=== PATIENT | female | born 1940 | race Caucasian/White ===

== ENCOUNTER 2023-03-08 13:16 | Outpatient (RCR) | payer OTHER, SELFPAY | END 2023-03-08 23:59 | disposition home or self-care (01) | LOC: RPT 13:16 | PROVIDERS: ATTENDING PHYSICIAN Nurse Practitioner; PRIMARYCARE PHYSICIAN Family Medicine | DX: N39.46 Mixed incontinence (principal); N39.3 Stress incontinence (female) (male); N39.41 Urge incontinence; R27.8 Other lack of coordination; M62.81 Muscle weakness (generalized) | CPT/HCPCS: 97110; 97530 ==

== ENCOUNTER 2023-04-20 11:05 | Outpatient (RCR) | payer OTHER, SELFPAY | END 2023-04-20 23:59 | disposition home or self-care (01) | LOC: RPT 11:05 | PROVIDERS: ATTENDING PHYSICIAN Nurse Practitioner; PRIMARYCARE PHYSICIAN Family Medicine | DX: N39.46 Mixed incontinence (principal); N39.3 Stress incontinence (female) (male); N39.41 Urge incontinence; Z73.6 Limitation of activities due to disability; R27.8 Other lack of coordination; M62.81 Muscle weakness (generalized) | CPT/HCPCS: 97110; 97530 ==

== ENCOUNTER 2023-05-04 13:00 | Outpatient (RCR) | payer OTHER, SELFPAY | END 2023-05-11 14:10 | disposition home or self-care (01) | LOC: RPT 13:00 | PROVIDERS: ATTENDING PHYSICIAN Nurse Practitioner; PRIMARYCARE PHYSICIAN Family Medicine | DX: N39.46 Mixed incontinence (principal); N39.3 Stress incontinence (female) (male); N39.41 Urge incontinence; Z73.6 Limitation of activities due to disability; R27.8 Other lack of coordination; M62.81 Muscle weakness (generalized) | CPT/HCPCS: 97112; 97530 ==

== ENCOUNTER → 2023-08-15 11:24 | Outpatient (REF) | payer OTHER, SELFPAY | LOC: RAD 11:24 | PROVIDERS: ATTENDING PHYSICIAN Family Medicine | DX: Z13.820 Encounter for screening for osteoporosis (principal); Z78.0 Asymptomatic menopausal state; M85.89 Other specified disorders of bone density and structure, multiple sites | CPT/HCPCS: 77080 ==

== ENCOUNTER 2023-09-30 12:05 | Emergency (ER) | payer OTHER, SELFPAY ==
[2023-09-30 12:07] VITALS: BP 156/75
[2023-09-30 12:36] LABS: % Basophils 0.5 % (0-2); % Eosinophils 2.6 % (0-6); % Immature Granulocytes 0.2 % (0-0.5); % Lymphocytes 19.3 % (20.5-51.1); % Monocytes 6.7 % (1.7-9.3); % Neutrophils 70.7 % (42.2-75.2); Absolute Eosinophils 0.2 10^3/uL (0-0.7); Absolute Lymphocytes 1.6 10^3/uL (1.2-3.4); Absolute Monocytes 0.6 10^3/uL (0.1-0.6); Absolute Neutrophils 5.9 10^3/uL (1.4-6.5); Hematocrit 41.2 % (37.0-47.0); Hemoglobin 13.8 g/dL (12.0-16.0); Mean Corp Hgb Conc. 33.5 g/dL (33.0-37.0); Mean Corpuscular Hgb 30.4 pg (27.0-31.0); Mean Corpuscular Volume 90.7 fL (81.0-99.0); Mean Platelet Volume 9.4 fL (7.4-10.4); Nucleated Red Blood Cells % 0 %; Platelet Count 311 10^3/uL (130-400); Red Blood Cell Count 4.54 10^6/uL (4.20-5.40); Red Cell Dist. Width 12.3 % (11.5-14.5); White Blood Cell Count 8.4 10^3/uL (4.8-10.8)
[2023-09-30 12:46] LABS: ALT (SGPT) 21 U/L (0-35); AST (SGOT) 25 U/L (14-36); Albumin 4.6 g/dl (3.5-5.0); Alkaline Phosphatase 98 U/L (38-126); Blood Urea Nitrogen 25 mg/dl (7-17); Calcium 10.7 mg/dl (8.4-10.2); Carbon Dioxide 24 mmol/L (22-30); Chloride 102 mmol/L (98-107); Glucose 145 mg/dl (70-99); Potassium 4.6 mmol/L (3.5-5.1); Sodium 138 mmol/L (135-145); Total Bilirubin 0.9 mg/dl (0.2-1.3); Total Protein 7.2 g/dl (6.3-8.2); eGFR > 60.00
--- NOTE | 2023-09-30 12:48 | ED.GENMED ---
Addendum entered and electronically signed by Vincent Herrera PA-C 10/03/23 10:18:
Urine culture shows greater than 100,000 colony-forming units of E. coli. She has multiple antibiotic allergies. Spoke with patient. Prescribed Cipro 500 mg twice a day. Sent this to pharmacy
Original Note:
History of Present Illness
General
Chief Complaint: Dizziness
Source: patient
Exam Limitations: none
Time Seen by Provider: 09/30/23 12:36
History of Present Illness
History of Present Illness:
83-year-old female complaining of disequilibrium and ambulatory issues. Started yesterday. Patient thinks this may have been from her 's glipizide. However her blood sugars have remained over 100 throughout this episode. Denies speech
issues visual issues or other neurologic issues. History of vertigo 1 time in the past although this feels different. This is not a syncope or near syncope sensation. It is clearly an equilibrium issue
Past History
Past History
ED Past Medical History: Cancer (Breast), HTN, Hypercholesterolemia, NIDDM, Hypothyroidism, Psychiatric (anxiety) and Other (Diverticulosis)
ED Past Surgical History: Appendectomy, Cholecystectomy, Gynecological (Hysterectomy) and Tonsilectomy
Social History
Tobacco: Non-smoker
Alcohol: None
Drug: None
Personal:
Living: with family
Employment: Retired
Family History
Family History: Other (Noncontributory)
Review of Systems
Review of Systems
All Other Systems: Not applicable
Constitutional: Denies fever
Respiratory: Reports no symptoms
Cardiac: Reports no symptoms
ABD/GI: Reports no symptoms
Phy Exam
Physical Exam
Physical Exam:
GENERAL: Alert and oriented in no apparent distress
EYE: Orbits normal.
NECK: Supple, no carotid bruit
ENT: Pharynx without erythema
CARDIAC: Regular rate and rhythm without any obvious murmurs.
LUNGS: Clear breath sounds,normal
ABDOMEN: Soft, without focal tenderness or distention
NEUROLOGICAL: Alert and oriented , speech issue. Cranial nerves II through XII intact. [id number] normal. No drift.
SKIN: Warm and dry, no rash or lesion, no discoloration, skin intact.
MUSCULOSKELETAL: No edema,no deformity.Good color
PSYCH: Normal and appropriate interaction.
Course
Orders/Labs/Results
Orders:
Orders
09/30/23 12:24
Cardiac Monitoring- Treatment ONCE
IV Insert/Care/Rem.- Treatment PRN
Vital Signs As Directed
Frequency: Other
09/30/23 12:26
Complete Blood Count/With Diff Urgent
Comprehensive Metabolic Panel Urgent
Troponin I Urgent
09/30/23 12:47
MR Brain Without Contrast Urgent
Comment:
Reason For Exam: Disequilibrium
Recent pill cam endoscopy?: No
0.9% Sodium Chloride 250 ml [Nss] 250 ml IV BOLUS
09/30/23 13:15
Urinalysis Reflex To Culture Urgent
Date Specimen was Collected: 09/30/23
Time Specimen was Collected: 12:25
Urine Microscopic Reflex Cult Urgent
Urine Culture Urgent
ANA Source: U
Specimen Description:
Date Specimen was Collected: 09/30/23
Time Specimen was Collected: 12:25
Abnormal Lab Results
09/30/23 09/30/23
12:26 13:15
Lymphocytes % 19.3 L %
(20.5-51.1)
BUN 25 H mg/dl
(7-17)
Glucose 145 H mg/dl
(70-99)
Calcium 10.7 H mg/dl
(8.4-10.2)
Leukocyte Esterase Rfl Trace A
(Negative)
Urine Bacteria (Reflex) Moderate A
(Negative)
09/30/23 12:26
09/30/23 12:26
Vital Signs
Initial and Last Documented VS:
Initial Vital Signs
Temp Pulse Resp BP Pulse Ox
98.2 F 74 16 156/75 98
09/30/23 12:07 09/30/23 12:07 09/30/23 12:07 09/30/23 12:07 09/30/23 12:07
Last Documented Vital Signs
Temp Pulse Resp BP Pulse Ox
98.2 F 108 16 159/87 97
09/30/23 12:07 09/30/23 14:20 09/30/23 14:20 09/30/23 14:20 09/30/23 14:20
MDM/Problems Addressed
Differential Diagnosis Includes:
Patient describing a disequilibrium for 24+ hours. I do not feel this is related to her blood sugar issue or potential for taking her 's medications as her blood sugars have remained stable. She is neurologically normal. However she is not
describing true vertigo. Concern would be inner ear versus cerebellar. Discussed with radiology. Will get a plain brain. If this is negative and patient can handle as an outpatient this is reasonable outpatient management. If positive or other
significant testing is positive would warrant inpatient management
*Radiology
Radiology exam reviewed: radiology read reviewed (No acute findings on MRI)
*Pulse Oximetry
Patient hypoxic: no
*Systems Integration Manager Interpretation
Rate: normal
Interpretation: normal
Heart Rate: 65
Rhythm: sinus
*Critical Care Note
Total Time (30-74mins, 75-104mins- exclusive of procedures): Not Applicable
Data Reviewed
Review of Other/Old Records Reveals: Labs, Records and Testing
Update Note
Update Note:
No signs of stroke. MRI unremarkable. Ambulated to bathroom. Urinalysis with moderate bacteria but only trace leukocyte Estrace and 6-10 white cells. Will await culture discharged to follow-up
ED Attending Note
-
Portions of this chart may have been created with voice recognition software.� Occasional wrong word or��sound alike� substitutions may have occurred due to the inherent limitations of voice recognition software.
Discharge Plan
Departure
Patient Disposition: Home (Routine Discharge)
Date of Disposition: 09/30/23
Time of Disposition: 17:21
Patient with high blood pressure during this ER visit?: Yes
Discharge Problem:
Disequilibrium
Instructions: Dizziness, Nonvertigo, (DC), BLOOD PRESSURE
Prescriptions:
No Action
triamterene-hydrochlorothiazid 1 EACH capsule
1 ea PO DAILY
simvastatin 20 MG tablet
20 mg PO HS
metformin 500 MG tablet
500 mg PO DAILY
Irbesartan
150 mg PO DAILY
anastrozole 1 MG tablet
1 mg PO DAILY@1800
metoprolol tartrate [Lopressor] 100 MG tablet
100 mg PO BID
metformin 1,000 MG tablet
1,000 mg PO DAILY@1800
amlodipine [Norvasc] 5 MG tablet
5 mg PO DAILY@1800
lorazepam 0.5 MG tablet
0.5 mg PO HS PRN (Reason: anxiety/sleep)
magnesium 250 MG tablet
250 mg PO DAILY
levothyroxine 112 MCG tablet
112 mcg PO Q48H
cholecalciferol (vitamin D3) 2,000 UNITS tablet
2,000 units PO BID
levothyroxine 125 MCG capsule
125 mcg PO Q48H
calcium phosphate-vitamin D3 1 EACH tablet,chewable
1 ea PO DAILY
[place]-3s/Dha/Epa/Fish Oil [Fish Oil 1,200 Mg Softgel] 1 EACH Capsule
1 ea PO BID
prednisone 20 MG tablet
60 mg PO DAILY
omeprazole magnesium [Prilosec OTC] 20 MG tablet,delayed release (DR/EC)
20 mg PO DAILY
valacyclovir 1,000 MG tablet
1,000 mg PO BID Qty: 20 0RF
prednisone 20 MG tablet
40 mg PO DAILY Qty: 14 0RF
gabapentin 300 MG capsule
300 mg PO TIDPRN PRN (Reason: pain) Qty: 30 0RF
cephalexin 500 mg capsule
500 mg PO Q6H Qty: 28 0RF
Referrals:
Angie Ward MD [Family Provider] - Follow up in 2-3 days
Interventions
Interventions:
*Risk Screen - Suicide Last Done: 09/30/23 12:07
*General Assessment Last Done: 09/30/23 12:07
*Neglect/Abuse Screening Last Done: 09/30/23 12:07
ED- Fall Risk Assessment Last Done: 09/30/23 13:18
*ED COVID-19 Vaccine History Last Done: 09/30/23 13:22
ED- Neurological Assessment Last Done: 09/30/23 13:22
ED- Cardiac Assessment Last Done: 09/30/23 13:18
ED Swallowing Screen Last Done: 09/30/23 14:23
Discharge Date and Time
Print Language: TURKMEN
[2023-09-30 12:57] LABS: Troponin I < 0.012 ng/ml
[2023-09-30 13:00] VITALS: BP 170/66
[2023-09-30 13:16] VITALS: BP 170/66; BMI 39.9
[2023-09-30 13:27] LABS: Urine Albumin Negative (Neg - Trace); Urine Bilirubin Negative (Negative); Urine Character Clear (Clear); Urine Color Straw; Urine Glucose Negative (Negative); Urine Ketone Negative (Negative); Urine Leukocyte Trace (Negative); Urine Nitrite Negative (Negative); Urine Occult Blood Negative (Negative); Urine Specific Gravity 1.005 (<1.030); Urine Urobilinogen Negative (Neg - 1+)
[2023-09-30 13:51] LABS: Urine Squamous Cell 0-2 /LPF (Few)
[2023-09-30 13:52] LABS: Urine Bacteria Moderate (Negative); Urine Red Blood Cell 0-2 /HPF (0-2)
[2023-09-30 14:20] VITALS: BP 159/87
[2023-09-30] MEDS: NSS 250 IV (14:46)
--- NOTE | 2023-09-30 16:58 | EDRN ---
Patient was able to ambulate to and from the restroom without any difficulty, sitting on side of bed for now for comfort.
== END 2023-09-30 18:04 | disposition home or self-care (01) ==
LOC: EMR 12:05
PROVIDERS: Emergency Medicine; EMERGENCY PHYSICIAN Emergency Medicine; FAMILY PHYSICIAN Family Medicine
DX: E87.8 Other disorders of electrolyte and fluid balance, not elsewhere classified (principal); I10 Essential (primary) hypertension; E78.00 Pure hypercholesterolemia, unspecified; E11.9 Type 2 diabetes mellitus without complications; E03.9 Hypothyroidism, unspecified; F41.9 Anxiety disorder, unspecified; Z85.3 Personal history of malignant neoplasm of breast; Z90.49 Acquired absence of other specified parts of digestive tract; Z90.710 Acquired absence of both cervix and uterus
CPT/HCPCS: 99284; 96360; 70551; 80053; 81003; 81015; 84484; 85025; 87077; 87086; 87186

== ENCOUNTER → 2024-10-02 12:38 | Outpatient (REF) | payer OTHER, SELFPAY | LOC: RCS 12:38 | PROVIDERS: ATTENDING PHYSICIAN Internal Medicine Cardiovascular Disease; FAMILY PHYSICIAN Family Medicine | DX: I34.0 Nonrheumatic mitral (valve) insufficiency (principal) | CPT/HCPCS: 93306 ==

== ENCOUNTER → 2024-10-12 11:56 | Outpatient (REF) | payer OTHER, SELFPAY | LOC: RAD 11:56 | PROVIDERS: ATTENDING PHYSICIAN Physician Assistant Medical; FAMILY PHYSICIAN Family Medicine | DX: R10.11 Right upper quadrant pain (principal); R07.81 Pleurodynia | CPT/HCPCS: 71101 ==

== ENCOUNTER → 2024-10-18 09:04 | Outpatient (REF) | payer OTHER, SELFPAY | LOC: HWRAD 09:04 | PROVIDERS: ATTENDING PHYSICIAN Physician Assistant Medical; FAMILY PHYSICIAN Family Medicine | DX: R10.11 Right upper quadrant pain (principal); R07.81 Pleurodynia | CPT/HCPCS: 76700 ==

== ENCOUNTER → 2024-11-15 14:33 | Outpatient (REF) | payer OTHER, SELFPAY | LOC: RAD 14:33 | PROVIDERS: ATTENDING PHYSICIAN Family Medicine | DX: R05.3 Chronic cough (principal) | CPT/HCPCS: 71046 ==

== ENCOUNTER → 2024-12-20 11:49 | Outpatient (REF) | payer OTHER, SELFPAY | LOC: RAD 11:49 | PROVIDERS: ATTENDING PHYSICIAN Family Medicine | DX: J18.9 Pneumonia, unspecified organism (principal) | CPT/HCPCS: 71046 ==

== ENCOUNTER 2025-01-23 07:06 | Outpatient (RCR) | payer OTHER, SELFPAY | END 2025-01-23 23:59 | disposition home or self-care (01) | LOC: RPT 07:06 | PROVIDERS: ATTENDING PHYSICIAN Nurse Practitioner Family; FAMILY PHYSICIAN Family Medicine | DX: M62.830 Muscle spasm of back (principal); Z73.6 Limitation of activities due to disability; M54.2 Cervicalgia; M25.511 Pain in right shoulder; M54.6 Pain in thoracic spine | CPT/HCPCS: 97110; 97162 ==

== ENCOUNTER 2025-02-19 10:25 | Outpatient (RCR) | payer OTHER, SELFPAY | END 2025-02-19 23:59 | disposition home or self-care (01) | LOC: RPT 10:25 | PROVIDERS: ATTENDING PHYSICIAN Nurse Practitioner Family; FAMILY PHYSICIAN Family Medicine | DX: M62.830 Muscle spasm of back (principal); Z73.6 Limitation of activities due to disability; M54.2 Cervicalgia; M25.511 Pain in right shoulder; M54.6 Pain in thoracic spine | CPT/HCPCS: 97010; 97110; 97140 ==

== ENCOUNTER 2025-03-11 08:29 | Outpatient (RCR) | payer OTHER, SELFPAY | END 2025-03-12 06:53 | disposition home or self-care (01) | LOC: RPT 08:29 | PROVIDERS: ATTENDING PHYSICIAN Nurse Practitioner Family; FAMILY PHYSICIAN Family Medicine | DX: M62.830 Muscle spasm of back (principal); Z73.6 Limitation of activities due to disability; M54.2 Cervicalgia; M25.511 Pain in right shoulder; M54.6 Pain in thoracic spine | CPT/HCPCS: 97010; 97110; 97140 ==